=== PATIENT | female | born 1945 | race African-American/Black ===

== ENCOUNTER 2021-07-11 06:52 | Inpatient (IN) | payer MEDICARE ==
[~2021-07-11] VITALS: Ht 167.6 cm; Wt 65.8 kg
--- NOTE | 2021-07-11 07:04 | NUR ---
PT SEEN BY DR RYAN DENG
--- NOTE | 2021-07-11 07:09 | NUR ---
[id number] C/O HEADACHE AND SHAKINESS X1DAY +NAUSEA. PATIENT ALERT AND ORIENTED X3. AMBULATORY WITH NON LABORED BREATHING. PLACED IN BED 07 ON MONITOR AND POX.
--- NOTE | 2021-07-11 07:21 | NUR ---
Nathalie irizarry in [facility] - 07/11/21 at 0731 by KARYN TRISHA PORT-A-CATH; PATENT AND INTACT.
--- NOTE | 2021-07-11 07:21 | NUR ---
ESTABLISHED RCW PORT; PATENT AND INTACT.
--- NOTE | 2021-07-11 07:21 | NUR ---
Nathalie irizarry in [facility] - 07/11/21 at 0731 by KARYN TRISHA PORT-A-CATH; PATENT AND INTACT.
--- NOTE | 2021-07-11 07:22 | NUR ---
BLOOD COLLECTED AND SENT TO LAB
--- NOTE | 2021-07-11 07:26 | NUR ---
COVID SWAB DONE AND SENT TO LAB
[2021-07-11] MEDS ORDERED: IV NS 0.9% 1,000 ML BAG IV ONE (07:30)
--- NOTE | 2021-07-11 07:39 | NUR ---
TAKEN TO CT
--- NOTE | 2021-07-11 07:50 | NUR ---
MOVE SHEET SUBMITTED AND CALLED FOR TELE BED.
[2021-07-11 07:53] LABS: BASOPHILS % (AUTO) 0.4 % (0.0-2.0); HEMATOCRIT 37 % (33-45); LYMPHOCYTES # (AUTO) 0.6 K/uL (0.8-4.8); LYMPHOCYTES % (AUTO) 9.6 % (20.0-44.0); MEAN CORPUSCULAR HGB CONC 33 g/dl (31.0-36.0); MEAN CORPUSCULAR VOLUME 85 fL (82-100); MONOCYTES # (AUTO) 0.5 K/uL (0.1-1.30); MONOCYTES % (AUTO) 7.7 % (2.0-12.0); NEUTROPHILS # (AUTO) 4.9 K/uL (1.8-8.9); NEUTROPHILS % (AUTO) 82.3 % (43.0-81.0); PLATELET COUNT (AUTO) 209 K/uL (150-450); RED BLOOD CELL COUNT(AUTO) 4.32 MIL/uL (4.0-5.2)
[2021-07-11] MEDS ORDERED: diphenhydrAMINE HCL 50 MG/ML VIAL ONE (08:00)
[2021-07-11] MEDS ORDERED: METOCLOPRAMIDE HCL 10 MG/2 ML VIAL ONE (08:00)
[2021-07-11] MEDS ORDERED: diphenhydrAMINE HCL 50 MG/ML VIAL IV ONE (08:00)
[2021-07-11] MEDS ORDERED: METOCLOPRAMIDE HCL 10 MG/2 ML VIAL IV ONE (08:00)
[2021-07-11] MEDS ORDERED: hydrALAZINE HCL IV 20 MG VIAL ONE (08:09)
[2021-07-11 08:15] LABS: ALBUMIN 3.5 g/dL (3.4-5.0); BILIRUBIN,DIRECT 0.1 mg/dL (0.0-0.2); BILIRUBIN,TOTAL 0.5 mg/dL (0.2-1.0); CALCIUM, SERUM 9.3 mg/dL (8.5-10.1); CREATININE 1.2 mg/dL (0.6-1.3); POTASSIUM 3.8 mmol/L (3.5-5.1); TOTAL PROTEIN, SERUM 9.3 g/dL (6.4-8.2)
--- NOTE | 2021-07-11 08:18 | NUR ---
UNABLE TO PROVIDE URINE SPECIMEN AT THIS TIME, WILL TRY AGAIN LATER
[2021-07-11] MEDS ORDERED: hydrALAZINE HCL IV 20 MG VIAL IV ONE (08:30)
[2021-07-11] MEDS ORDERED: FURO-145 PO (09:02)
[2021-07-11] MEDS ORDERED: PANT40TA49 PO (09:02)
[2021-07-11] MEDS ORDERED: TRAM50TA2 PO (09:02)
[2021-07-11] MEDS ORDERED: PRED10TA PO (09:02)
[2021-07-11] MEDS ORDERED: HYDR-4076 PO (09:02)
[2021-07-11] MEDS ORDERED: ATOR40TA PO (09:02)
[2021-07-11] MEDS ORDERED: GABA-532 PO (09:02)
[2021-07-11] MEDS ORDERED: TRAZ-252 PO (09:02)
[2021-07-11] MEDS ORDERED: ASPI-1420 PO (09:02)
[2021-07-11] MEDS ORDERED: [UNRECOGNIZED DRUG - CODE] PO (09:02)
[2021-07-11] MEDS ORDERED: ONDA4TAB11 SL (09:02)
[2021-07-11] MEDS ORDERED: METO5TAB2 PO (09:02)
[2021-07-11] MEDS ORDERED: IVIG IV (09:02)
[2021-07-11] MEDS ORDERED: CHOL100043 PO (09:02)
[2021-07-11] MEDS ORDERED: DILT-1 PO (09:02)
[2021-07-11] MEDS ORDERED: THIA100T70 PO (09:02)
[2021-07-11] MEDS ORDERED: OXYC10TA49 PO (09:03)
[2021-07-11] MEDS ORDERED: FAMO20TA8 PO (09:04)
--- NOTE | 2021-07-11 09:56 | NUR ---
Nathalie irizarry in [facility] - 07/11/21 at 0957 by MATIAS BED GIVEN 328-1
--- NOTE | 2021-07-11 09:57 | NUR ---
BED GIVEN 328-1
--- NOTE | 2021-07-11 10:09 | NUR ---
REPORT GIVEN TO ANDREW FOR TARIK
--- NOTE | 2021-07-11 11:25 | NUR ---
THE PATIENT IS TRANSFERED TO ROOM 328-1 IN STABLE CONDITION AND PER POLICY
--- NOTE | 2021-07-11 11:30 | NUR ---
ADMISSION NOTE Received patient from ER via gurney. Patient is A/O x 4, able to make needs known. Stable on room air, breathing evenly and unlabored. IV access on RCW, intact and patent. All belongings accounted for. Patient oriented to room and how to use the call light. Vital signs as follows: BP 159/83; HR 84' Addendum: 07/11/21 at 1703 by TAMEKA MEZA RN ADD: Vital signs as follows: BP 159/83; HR 84; RR 20; Temp 98.4; SPO2 97%. Skin assessment done, skin is c/d/i. Bowel sounds active all throughout. Lung sounds clear. Tele box attached showing SR, HR on the 80's. Safety precautions in place: bed inlow, locked position; siderails up x 2; call light within reach. will continue to monitor.
[2021-07-11] MEDS ORDERED: ZOLPIDEM TARTRATE 5 MG TABLET PO PRN (12:30)
[2021-07-11] MEDS ORDERED: MAG HYDROX/AL HYDROX/SIMETH 30 ML UDC PO PRN (12:30)
[2021-07-11] MEDS ORDERED: Z GUARD REMEDY 4 OZ OINT TP PRN (12:30)
[2021-07-11] MEDS ORDERED: MAGNESIUM HYDROXIDE 30 ML UDC PO PRN (12:30)
[2021-07-11] MEDS ORDERED: ACETAMINOPHEN 325 MG TABLET PO PRN (12:30)
[2021-07-11] MEDS ORDERED: ONDANSETRON HCL/PF 4 MG/2 ML VIAL IVP PRN (12:30)
[2021-07-11] MEDS: HYDROCODONE/APAP 5/325MG TABLET PO PRN ×2 (13:13→17:23)
[2021-07-11] MEDS: IV 1/2NS 1000 ML 1,000 ML IV PRN (13:38)
--- NOTE | 2021-07-11 15:07 | NUR ---
MRI APPROVED BY DR. JOHANSEN, [facility] NOTIFIED VIA TEXT, TO BE DONE TOMORROW AM.
[2021-07-11] MEDS ORDERED: NITROGLYCERIN 0.4 MG/TAB BOTTLE SL PRN (15:30)
[2021-07-11] MEDS ORDERED: MORPHINE SULFATE INJ 2 MG/ML DISP.SYRIN IV PRN (15:30)
[2021-07-11] MEDS: ASPIRIN EC 81 MG TABLET.DR PO SCH (15:40)
[2021-07-11 17:51] VITALS: BP 152/74
[2021-07-11 18:49] LABS: BILIRUBIN,URINE NEGATIVE (NEGATIVE); COLOR,URINE YELLOW (YELLOW); LEUKOCYTE ESTERASE ,URINE NEGATIVE (NEGATIVE); NITRITE, URINE NEGATIVE (NEGATIVE); PH,URINE 6.5 (5.0-8.0); PROTEIN,URINE NEGATIVE (NEGATIVE); UGLUCOSE NEGATIVE (NEGATIVE); UROBILINOGEN,URINE 0.2 EU/dL (0.2)
--- NOTE | 2021-07-11 19:21 | NUR ---
BOILER RIVETER CLOSING NOTE Patient in bed, resting comfortably. A/O x 4, able to make needs known. Stable on room air, breathing evenly and unlabored. No SOB or s/s of distress noted. IV access on RCW infusing 1/2 NS at 75 ml/hr. On tele monitoring showing SR with bundle branch block, Hr on the 70's. All needs attended to. Safety precautions maintained: bed in low, locked position; siderails up x 2; call light within reach. Will endorse to night worker nurse for TARIK.
--- NOTE | 2021-07-11 19:42 | NUR ---
FIELD EDUCATION DIRECTOR OPENING RECEIVED PATIENT IN BED, A/OX4. NO S/S OF APPARENT DISTRESS ON ROOM AIR. DENIES PAIN AT THIS TIME. TELE MONITOR READING SR 81 BPM. RCW KAITY CATH RUNNING 1/2 NS @75ML/HR. BSC NOTED AT BEDSIDE. NO NEEDS AT THIS TIME. SAFETY IN PLACE. WILL CONTINUE WITH PATIENT'S CARE PLAN.
[2021-07-11 20:04] VITALS: BP 160/96
--- NOTE | 2021-07-11 20:14 | NUR ---
REDRYING MACHINE OPERATOR NOTE PATIENT BP WAS INITIALLY 166/106. PERSONALLY CHECKED AND IT WAS 160/96 HR- 86. PER PATIENT SHE TAKES APRESOLINE 200MG PO TID AT HOME. MESSAGED BRAILLE OPERATOR EVETTE SALGADO NP AND ORDERED CLONIDINE 0.1MG PO Q8 PRN FOR SBP >160. WILL CARRY OUT ORDER.
[2021-07-11] MEDS ORDERED: CLONIDINE HCL 0.1 MG TABLET PO PRN (20:30)
--- NOTE | 2021-07-11 22:19 | NUR ---
ACTUARIAL TECHNICIAN NOTE- BP RECHECKED 125/76. HR 76 AFTER TAKING CLONIDINE. WILL CONT. TO MONITOR.
[2021-07-12 00:01] VITALS: BP 122/72
[2021-07-12] MEDS: IV 1/2NS 1000 ML 1,000 ML IV PRN ×2 (03:19→22:36)
--- NOTE | 2021-07-12 03:47 | NUR ---
COPY MACHINE OPERATOR NOTE PATIENT STATES THAT SHE FEEL CHILLS AND GETS COLD SWEATS. FURTHER INTERVIEWED PATIENT SHE SAID IT'S A NEW THING FOR HER STATING THAT SHE CAME IN FOR IT -- WEAKNESS, MUSCLE ACHE, CHILLS, ALONG WITH THE DX HEADACHE. PER PATIENT SHE DOES HAVE POLYMYOSITIS AND HER LAST TX WAS 2 WEEKS AGO. REPORTED TO CHARGE NURSE THE FINDINGS SINCE PATIENT RAPID TEST WAS NEGATIVE. PATIENT NO FEVER. MONITOR FOR NOW PER CHARGE.
[2021-07-12 04:00] VITALS: BP 124/74
--- NOTE | 2021-07-12 05:50 | NUR ---
TRACK ANNOUNCER NOTE GIVEN MORPHINE 2MG X1 DOSE ONLY C/O 12/29 PAIN ON BILATERAL HIPS. WILL REASSESS.
[2021-07-12 05:58] LABS: BASOPHILS % (AUTO) 1.1 % (0.0-2.0); EOSINOPHILS % (AUTO) 0.6 % (0.0-6.0); HEMATOCRIT 32 % (33-45); HEMOGLOBIN 10.6 g/dL (11.5-14.8); LYMPHOCYTES # (AUTO) 0.7 K/uL (0.8-4.8); LYMPHOCYTES % (AUTO) 22.6 % (20.0-44.0); MEAN CORPUSCULAR HGB CONC 33 g/dl (31.0-36.0); MEAN CORPUSCULAR VOLUME 84 fL (82-100); MONOCYTES # (AUTO) 0.4 K/uL (0.1-1.30); MONOCYTES % (AUTO) 14.2 % (2.0-12.0); NEUTROPHILS # (AUTO) 1.9 K/uL (1.8-8.9); NEUTROPHILS % (AUTO) 61.5 % (43.0-81.0); PLATELET COUNT (AUTO) 167 K/uL (150-450); RED BLOOD CELL COUNT(AUTO) 3.81 MIL/uL (4.0-5.2)
[2021-07-12 06:39] LABS: CALCIUM, SERUM 8.9 mg/dL (8.5-10.1); CREATININE 1.1 mg/dL (0.6-1.3); MAGNESIUM 1.7 mg/dL (1.8-2.4); PHOSPHORUS 3.8 mg/dL (2.5-4.9); POTASSIUM 3.8 mmol/L (3.5-5.1)
--- NOTE | 2021-07-12 07:24 | NUR ---
LEGAL INTERN NOTE REPORT GIVEN TO HERNÁN FOR CONTINUITY OF CARE. NO SIGNIFICANT CHANGE. NEEDS ATTENDED.
[2021-07-12] MEDS ORDERED: PANTOPRAZOLE 40 MG TABLET.DR PO SCH (07:30)
--- NOTE | 2021-07-12 07:32 | NUR ---
RN OPENING NOTE- PT IN BED, ASLEEP THOUGH EASILY AWAKENED, A/OX4. NO S/S OF APPARENT DISTRESS ON ROOM AIR. DENIES PAIN AT THIS TIME. TELE MONITOR READING SR 79 BPM. RCW KAITY CATH RUNNING 1/2 NS @75ML/HR. BSC NOTED AT BEDSIDE. NO NEEDS AT THIS TIME. SAFETY IN PLACE. WILL CONTINUE WITH PATIENT'S CARE PLAN.
[2021-07-12 08:14] VITALS: BP 132/76
[2021-07-12] MEDS: ASPIRIN EC 81 MG TABLET.DR PO SCH (08:45)
[2021-07-12 09:01] LABS: THYROID STIMULATING HORMONE 0.731 uIU/mL (0.358-3.74)
[2021-07-12] MEDS ORDERED: MAGNESIUM OXIDE 400 MG TABLET PO ONE (10:00)
[2021-07-12] MEDS: HYDROCODONE/APAP 5/325MG TABLET PO PRN (10:47)
[2021-07-12 12:19] VITALS: BP 128/71
[2021-07-12] MEDS ORDERED: TRAMADOL HCL 50 MG TABLET PO PRN (12:30)
[2021-07-12] MEDS ORDERED: HYOSCYAMINE SULFATE 0.125 MG TAB.SUBL SL PRN (13:00)
[2021-07-12] MEDS ORDERED: oxyCODONE IR immediate release 5 MG PO PRN (13:00)
[2021-07-12] MEDS ORDERED: METOCLOPRAMIDE HCL 10 MG TABLET PO PRN (13:00)
[2021-07-12] MEDS: ATORVASTATIN 40 MG TABLET PO SCH (13:04)
[2021-07-12] MEDS: DILTIAZEM HCL CD 120 MG PO SCH (13:05)
[2021-07-12] MEDS: FAMOTIDINE (20 MG) 20 MG TABLET PO SCH ×2 (13:05→17:38)
[2021-07-12] MEDS: GABAPENTIN 100 MG CAPSULE PO SCH ×2 (13:05→21:36)
[2021-07-12] MEDS: hydrALAZINE HCL 25 MG TABLET PO SCH ×2 (13:21→17:38)
[2021-07-12 16:36] VITALS: BP 144/72
[2021-07-12] MEDS ORDERED: GADOTERATE MEGLUMINE 5 MMOL/10 ML VIAL IV ONE (16:52)
[2021-07-12] MEDS: PANTOPRAZOLE 40 MG TABLET.DR PO SCH (17:39)
[2021-07-12] MEDS: predniSONE 5 MG TABLET PO SCH (17:39)
--- NOTE | 2021-07-12 18:53 | NUR ---
RN CLOSING NOTE- PT IN BED, ASLEEP THOUGH EASILY AWAKENED, A/OX4. NO S/S OF APPARENT DISTRESS ON ROOM AIR. DENIES PAIN AT THIS TIME. TELE MONITOR READING SR 80 BPM. RCW KAITY CATH RUNNING 1/2 NS @75ML/HR. BSC NOTED AT BEDSIDE. NO NEEDS AT THIS TIME. BED LOCKED. SAFETY IN PLACE..
[2021-07-12 20:00] VITALS: BP 131/83
[2021-07-12] MEDS ORDERED: diphenhydrAMINE HCL 50 MG/ML VIAL IV ONE (20:00)
--- NOTE | 2021-07-12 20:00 | NUR ---
INDUSTRIAL SALES MANAGER OPENING NOTE PATIENT AWAKE IN BED, ALERT/ORIENTED X 4, PT ABLE TO MAKE NEEDS KNOWN. PT DENIES PAIN AT THIS TIME. PATIENT NOTED WITH HIVES ON NECK AND HANDS, PER PT SKIN IS VERY SENSITIVE AND BELIEVES IT MIGHT BE THE TELE ELECTRODES OR DETERGENT IN SHEETS, NOTIFIED PROVINCE ARCHIVIST MD WITH NEW ONE TIME ORDER FOR BENADRYL IV 50 MG ONCE. PATIENT STABLE ON RA, NO S/S OF DISTRESS OR SOB NOTED, BREATHING EVEN AND UNLABORED. PATIENT ON EXTERNAL ROTOR CASTING MACHINE SETUP OPERATOR READING SINUS RHYTHM, HR: 73. RIGHT CHEST WALL KAITY CATH INTACT AND FLUSHING WELL. SAFETY MEASURES IN PLACE: CALL LIGHT WITHIN REACH, SIDE RAILS UP X 2, BED LOCKED IN LOW POSITION, HOB ELEVATED, TABLE WITHIN REACH, BED ALARM ON. WILL CONTINUE TO MONITOR PATIENT
[2021-07-12] MEDS ORDERED: TRAZODONE 50 MG TABLET PO SCH (22:00)
[2021-07-13 04:00] VITALS: BP 157/81
[2021-07-13] MEDS: GABAPENTIN 100 MG CAPSULE PO SCH ×2 (05:13→12:51)
--- NOTE | 2021-07-13 06:57 | NUR ---
WAGE AND HOUR INVESTIGATOR CLOSING NOTE PATIENT AWAKE IN BED, ALERT/ORIENTED X 4, PT ABLE TO MAKE NEEDS KNOWN. PT DENIES PAIN AT THIS TIME. PATIENT STABLE ON RA, NO S/S OF DISTRESS OR SOB NOTED, BREATHING EVEN AND UNLABORED. PATIENT ON EXTERNAL J2EE DEVELOPER READING SINUS RHYTHM WITH BBB, HR: 65. RIGHT CHEST WALL KAITY CATH INTACT AND INFUSING 1/2 NS @ 75 ML/HR. MEDICATIONS GIVEN ORDERED, PT NEEDS MET THROUGHOUT SHIFT. SAFETY MEASURES IN PLACE: CALL LIGHT WITHIN REACH, SIDE RAILS UP X 2, BED LOCKED IN LOW POSITION, HOB ELEVATED, TABLE WITHIN REACH, BED ALARM ON. WILL ENDORSE TO DAY SHIFT NURSE FOR CONTINUITY OF CARE
[2021-07-13] MEDS: ASPIRIN EC 81 MG TABLET.DR PO SCH (08:14)
[2021-07-13] MEDS: predniSONE 5 MG TABLET PO SCH ×2 (08:47→17:06)
[2021-07-13] MEDS: DILTIAZEM HCL CD 120 MG PO SCH (08:48)
[2021-07-13] MEDS: ATORVASTATIN 40 MG TABLET PO SCH (08:49)
[2021-07-13] MEDS: hydrALAZINE HCL 25 MG TABLET PO SCH ×3 (08:49→17:07)
[2021-07-13] MEDS: PANTOPRAZOLE 40 MG TABLET.DR PO SCH ×2 (08:49→17:06)
[2021-07-13] MEDS: FAMOTIDINE (20 MG) 20 MG TABLET PO SCH ×2 (08:49→17:07)
[2021-07-13] MEDS ORDERED: CHOLECALCIFEROL 1,000 UNIT TABLET (VIT D3) PO SCH (09:00)
[2021-07-13] MEDS ORDERED: THIAMINE HCL 100 MG TABLET PO SCH (09:00)
[2021-07-13 09:40] VITALS: BP 130/79
--- NOTE | 2021-07-13 11:40 | NUR ---
TELE/RN OPENING NOTES RECEIVED PATIENT IN BED, ALERT AND ORIENTED X4, ABLE TO MAKE NEEDS KNOWN. STABLE ON ROOM AIR. NO DISCOMFORTS AT THIS TIME. ON TELEMONITOR WITH SR WITH BBB READING. IV ACCESS ON RIGHT CHEST WALL PORT A CATH IS INTACT AND PATENT WITH A RUNNING IV 1/2 NS @75ML/HR. PATIENT IS AMBULATORY WITH STAND BY ASSIST. SAFETY MEASURES IN PLACED: BED LOCKED ON LOWEST POSITION, SIDE RAILS UPX2, CALL LIGHT WITHIN EASY REACH. WILL CONTINUE TO MONITOR.
[2021-07-13] MEDS ORDERED: IOHEXOL-350 100 ML VIAL IV ONE (12:26)
[2021-07-13] MEDS ORDERED: METOPROLOL TARTRATE INJ 5 MG/5 ML AMPUL ONE (12:26)
[2021-07-13] MEDS ORDERED: CT SWABBABLE VALVE TRANS SET 1 EA INFUS.SET MC ONE (12:27)
[2021-07-13] MEDS ORDERED: IV NS 0.9% 250 ML IV ONE (12:27)
[2021-07-13] MEDS: METOPROLOL TARTRATE INJ 5 MG/5 ML AMPUL IVP PRN ×2 (13:20→13:25)
[2021-07-13] MEDS ORDERED: NITROGLYCERIN 0.4 MG/TAB BOTTLE SL ONE (13:30)
[2021-07-13] MEDS: IV 1/2NS 1000 ML 1,000 ML IV PRN (14:11)
[2021-07-13] MEDS ORDERED: diphenhydrAMINE HCL 25 MG CAPSULE PO PRN (14:30)
[2021-07-13] MEDS ORDERED: diphenhydrAMINE HCL 50 MG/ML VIAL IV ONE ×2 (17:00)
[2021-07-13 17:45] VITALS: BP 137/76
--- NOTE | 2021-07-13 18:53 | NUR ---
TELE/RN CLOSING NOTES PATIENT IS AWAITING DAUGHTER FOR BRIGADIER TO DISCHARGE HOME. ALL BELONGINGS ACCOUNTED FOR AND DISCHARGE PAPERS WITH THE PATIENT. PATIENT IN BED, ALERT AND ORIENTED X4, ABLE TO MAKE NEEDS KNOWN. STABLE ON ROOM AIR. NO DISCOMFORTS AT THIS TIME. SAFETY MEASURES IN PLACED: BED LOCKED ON LOWEST POSITION, SIDE RAILS UPX2, CALL LIGHT WITHIN EASY REACH. WILL ENDORSE TO THE NEXT SHIFT.
== END 2021-07-13 18:50 | disposition home or self-care (01) | DRG 545 ==
LOC: ER 07:05 → TELE 10:05
PROVIDERS: ATTEND Nurse Practitioner Family
DX: M33.20 Polymyositis, organ involvement unspecified (principal); I21.A1 Myocardial infarction type 2; Z20.822 Contact with and (suspected) exposure to COVID-19; I10 Essential (primary) hypertension; Z95.2 Presence of prosthetic heart valve; Z88.0 Allergy status to penicillin; Z91.040 Latex allergy status; Z79.82 Long term (current) use of aspirin; Z79.899 Other long term (current) drug therapy; E83.42 Hypomagnesemia; G93.89 Other specified disorders of brain; Z86.73 Personal history of transient ischemic attack (TIA), and cerebral infarction without residual deficits; Z87.39 Personal history of other diseases of the musculoskeletal system and connective tissue
CPT/HCPCS: 36415; 70450-TC; 70553-TC; 71045-TC; 75574; 80048-TC; 80061-TC; 80076-TC; 82550-TC; 82553; 82728-TC; 83540-TC; 83605-TC; 83735-TC; 84100-TC; 84443-TC; 84484-TC; 85025-TC; 85652-TC; 85730-TC; 87040-TC; 87081-TC; 93307-TC; A9575; C9803; G0378; J0360; J1200; J2270; J2765; J3490; J7030; J7050; J7512; Q0163; Q9967